=== PATIENT | male | born 1960 | race Hispanic/Latino ===

== ENCOUNTER 2020-01-20 22:20 | Emergency (ER) | payer SELFPAY | END 2020-01-21 00:17 | disposition left against medical advice (07) | LOC: ED 22:20 | DX: R42 Dizziness and giddiness (principal); Z53.21 Procedure and treatment not carried out due to patient leaving prior to being seen by health care provider ==

== ENCOUNTER 2020-12-31 02:00 | Emergency (ER) | payer SELFPAY ==
[2020-12-31] MEDS ORDERED: cephALEXin 500 MG CAP PO ONE (02:15)
[2020-12-31] MEDS ORDERED: LIDOCAINE (1%) 10 MG/1 ML VIAL 20 ML MDV INFILTRATI ONE (02:15)
[2020-12-31] MEDS ORDERED: TETANUS,DIPH,PERTUSS(ACELL) VACCINE 0.5 ML SYRINGE IM ONE (02:15)
[2020-12-31] MEDS ORDERED: SODIUM CHLORIDE 0.9% IRR 500 ML BOTTLE IR ONE (02:15)
[2020-12-31] MEDS ORDERED: oxyCODONE /ACETAMINOPHEN 5-325MG TAB PO ONE (02:15)
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
[2020-12-31] MEDS ORDERED: SODIUM CHLORIDE IRRI 500 ML 1,000 ML IR ONE (05:45)
[2020-12-31 07:45] VITALS: BP 152/110
[2020-12-31] MEDS ORDERED: LIDOCAINE (1%) 10 MG/1 ML VIAL 20 ML MDV ONE (07:48)
== END 2020-12-31 10:30 | disposition home or self-care (01) ==
LOC: ED 02:00
DX: S62.610B Displaced fracture of proximal phalanx of right index finger, initial encounter for open fracture (principal); S61.212A Laceration without foreign body of right middle finger without damage to nail, initial encounter; Z88.5 Allergy status to narcotic agent; Z79.899 Other long term (current) drug therapy; Y04.8XXA Assault by other bodily force, initial encounter; Y93.89 Activity, other specified; Y92.89 Other specified places as the place of occurrence of the external cause; Y99.8 Other external cause status
CPT/HCPCS: 12002; 29125; 36415; 73130; 90471; 90715; 96365; 99284; J0690; 80320; G0480

== ENCOUNTER 2021-02-12 06:03 | Emergency (ER) | payer SELFPAY ==
[2021-02-12 06:19] VITALS: BP 134/83
[2021-02-12] MEDS ORDERED: TETANUS,DIPH,PERTUSS(ACELL) VACCINE 0.5 ML SYRINGE IM ONE (08:11)
[2021-02-12] MEDS ORDERED: ONDANSETRON 4 MG ODT TAB PO ONE (08:13)
[2021-02-12] MEDS ORDERED: HYDROcodone/ACETAMINOPHEN 10-325MG TAB PO ONE (08:13)
[2021-02-12] MEDS ORDERED: LIDOCAINE 1%/EPINEPHRINE 1:100,000 VIAL (20 ML) INFILTRATI NR (08:45)
--- NOTE | 2021-02-12 09:14 | XRay Report ---
Right hand radiograph, 3 views HISTORY: Pain after fall COMPARISON: None FINDINGS: There is no acute comminuted fracture of the right index finger proximal phalanx. There is intra-articular involvement. Dominant fracture fragment is displaced dorsally. There is resultant 5 m m of intra-articular gap. No additional fracture. No joint malalignment. Scattered osteoarthritis. So ft tissue swelling about the right index finger. IMPRESSION: Acute comminuted intra-articular fracture of the right index finger proximal phalanx. Signer Name: Modesto Jose MD Signed: 02/12/2021 9:10 AM Workstation Name: [id number]
--- NOTE | 2021-02-12 09:14 | Cat Scan Report ---
CT head/brain wo con INDICATION / CLINICAL INFORMATION: 61 years Male; fall with head injury and dizzines. TECHNIQUE: Routine CT head without contrast. All CT scans at this location are performed using CT dos e reduction for ALARA by means of automated exposure control. COMPARISON: None. FINDINGS: BRAIN / INTRACRANIAL CONTENTS: There is a hematoma involving the right frontal scalp. However, there is no clear CT evidence of acute intracranial hemorrhage or significant mass effect. There are mild periventricular white matter changes most consistent with microvascular angiopathy. Th e ventricular system is within normal limits in size and configuration. The calvarium appears intact. ORBITS: No significant abnormality of visualized orbits. SINUSES / MASTOIDS: No significant abnormality in the visualized paranasal sinuses or mastoid air faustina ls. CRANIOCERVICAL JUNCTION: No significant abnormality. ADDITIONAL FINDINGS: None. IMPRESSION: 1. There is a right frontal scalp hematoma. However, there is no CT ends of acute intracranial hemorr mike. Signer Name: Walker Bustillo MD Signed: 02/12/2021 9:10 AM Workstation Name: [id number]
--- NOTE | 2021-02-12 09:15 | XRay Report ---
Right elbow radiograph, 3 views HISTORY: Pain after fall COMPARISON: None FINDINGS: No acute fracture or malalignment. Mild osteoarthritic change of the elbow. No joint capsul ar distention. IMPRESSION: No acute process Signer Name: Modesto Jose MD Signed: 02/12/2021 9:11 AM Workstation Name: [id number]
--- NOTE | 2021-02-12 09:21 | Cat Scan Report ---
CT MAXILLOFACIAL WITHOUT CONTRAST INDICATION / CLINICAL INFORMATION: fall with facial injury, nose pain. TECHNIQUE: All CT scans at this location are performed using CT dose reduction for ALARA by means of automated e xposure control. COMPARISON: None available. FINDINGS: FACIAL BONES: There is a hematoma involving right for head soft tissues at. There is a focal defect i nvolving medial right orbital wall. However, there are no significant adjacent inflammatory changes i n this finding may be related to previous trauma or possibly developmental. Otherwise, the facial bon es including the orbital christianson, sinuses and zygomatic arches appear intact. PARANASAL SINUSES: There is mild mucosal thickening within the left maxillary sinus with mild narrowi ng of the left ostiomeatal complex. Minimal mucosal thickening is seen within the right maxillary sin us and ethmoid air cells. There is also minimal mucosal thickening along the anterior left sphenoid s inus. There is mild deviation of the nasal septum toward the left. ORBITS: The optic globes demonstrate appropriate size and configuration. No significant post septal i nflammatory changes are identified. VISUALIZED INTRACRANIAL STRUCTURES: The CT Brain will be dictated separately. ADDITIONAL FINDINGS: None. IMPRESSION: 1. There is a small a focal defect involving medial right orbital wall without significant surround ing inflammatory changes which may be developmental or related to previous trauma as detailed above. 2. There is a hematoma involving the right forehead soft tissues. Otherwise, the facial bones appear intact. Signer Name: Walker Bustillo MD Signed: 02/12/2021 9:16 AM Workstation Name: [id number]
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
[2021-02-12 09:34] LABS: Basophils % (Auto) 0.6 % (0.0-1.8); Eosinophils # (Auto) 0.2 K/mm3 (0.0-0.4); Hematocrit 44.8 % (35.5-45.6); Hemoglobin 15.2 gm/dl (11.8-15.2); Lymphocytes % (Auto) 12.6 % (13.4-35.0); Mean Corpuscular HGB Conc 34 % (32-34); Mean Corpuscular Volume 94 fl (84-94); Monocytes # (Auto) 0.9 K/mm3 (0.0-0.8); Monocytes % (Auto) 10.3 % (0.0-7.3); Platelet Count 291 K/mm3 (140-440); Red Blood Count 4.77 M/mm3 (3.65-5.03); Red Cell Distribution Width 13.5 % (13.2-15.2)
[2021-02-12 09:51] LABS: Blood Urea Nitrogen 12 mg/dL (9-20); Calcium 9.4 mg/dL (8.4-10.2); Hemolysis Index 5
[2021-02-12 09:55] LABS: BUN/Creatinine Ratio 17
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
[2021-02-12] MEDS ORDERED: HYDROGEN PEROXIDE 118 ML SOLUTION TP STA (11:19)
[2021-02-12] MEDS ORDERED: KETOROLAC 60 MG/2 ML INJ IM ONE (11:47)
== END 2021-02-12 13:00 | disposition home or self-care (01) ==
LOC: ED 06:03
DX: S06.0X9A Concussion with loss of consciousness of unspecified duration, initial encounter (principal); S62.609A Fracture of unspecified phalanx of unspecified finger, initial encounter for closed fracture; S01.81XA Laceration without foreign body of other part of head, initial encounter; F17.200 Nicotine dependence, unspecified, uncomplicated; Z88.6 Allergy status to analgesic agent; Z79.899 Other long term (current) drug therapy; V89.9XXA Person injured in unspecified vehicle accident, initial encounter; Y93.89 Activity, other specified; Y92.410 Unspecified street and highway as the place of occurrence of the external cause; Y99.8 Other external cause status
CPT/HCPCS: 12015; 36415; 70450; 70486; 72125; 73080; 73130; 80048; 82550; 83735; 85025; 90471; 90715; 96372; 99284; J1885; 80320; G0480; Q0162